=== PATIENT | male | born 1990 | race Caucasian/White ===

== ENCOUNTER 2018-04-08 22:40 | Emergency (ER) | payer SELFPAY ==
[~2018-04-08] VITALS: Ht 182.9 cm; Wt 72.6 kg
[~2018-04-08 22:40] MED LIST: CEPH500 PO; CLOT1TC TOP; CODACE30 PO; CRUTCH2 USE; HYDACE5325 PO; SULTRIDS PO; TRAM50 PO
== END 2018-04-08 23:46 | disposition left against medical advice (07) ==
LOC: ER 22:40
DX: Z53.21 Procedure and treatment not carried out due to patient leaving prior to being seen by health care provider (principal)

== ENCOUNTER 2020-01-28 17:04 | Observation (INO) | payer OTHER ==
[~2020-01-28] VITALS: Ht 177.8 cm; Wt 72.6 kg
--- NOTE | 2020-01-28 20:41 | NUR ---
ASSESSMENT PT ARRIVED TO ICU FOR RECOVERY VIA GURNEY. PT IS ALERT AND ORIENTED. HE HAS NO COMPLAINTS OF PAIN AT THIS TIME. REPORT RECIEVED FROM OFF GOING REJI ROBERT AND DR LEWIS. PT WILL RECOVERY AND THEN BE DISCHARGED HOME THIS EVENING. PT CALLED TO HAVE HER COME PICK IN UP. DR DASH WAS CALLED AND HE WILL PUT IN DISCHARGE ORDERS. VITALS ARE STABLE. PT WAS ABLE TO DRINK WATER WITH NO ISSUES. WILL CON'T TO MONITOR PT T/O SHIFT.
[2020-01-28] MEDS ORDERED: HYDR1TAB94 PO (21:03)
[2020-01-28] MEDS ORDERED: CEPH500 PO (21:04)
--- NOTE | 2020-01-28 21:30 | NUR ---
DISCHARGED PT WAS DISCHARED HOME WITH . IV TO RIGHT WRIST D/C'D CATH TIP INTACT. PT WAS ABLE TO DRINK TWO CUPS OF WATER. HE DID NOT HAVE TO URINATE. DRESSING TO LEFT HAND CDI.DISCHARGE INSTRUCTIONS REVIEWED WITH PT BY THIS RN. PT WAS GIVEN HIS KEFFLEX AND NORCO PRESCRIPTIONS WRITTEN BY DR DASH. DOLL WIG MAKER TOOK PT OUT TO VIA W/C. PT STABLE UPON LEAVING ICU RECOVERY.
== END 2020-01-28 21:15 | disposition home or self-care (01) ==
LOC: ER 17:04 → ICUW 17:05 → ICUE 20:20
PROVIDERS: ADMIT Orthopaedic Surgery
PROC: 0X6R0Z3 Detachment at Left Middle Finger, Low, Open Approach (ICD-10-PCS; principal; 2020-01-28 18:00)
DX: S68.123A Partial traumatic metacarpophalangeal amputation of left middle finger, initial encounter (principal); Z23 Encounter for immunization; F17.210 Nicotine dependence, cigarettes, uncomplicated; W23.0XXA Caught, crushed, jammed, or pinched between moving objects, initial encounter
CPT/HCPCS: 36415; 64450; 73140; 88300; 90471; 90714; 96365; 96375-59; 99285-25; A9270-GY; J0690; J1170; J2250; J2405; J2704; J3010; J7120

== ENCOUNTER 2023-03-28 17:49 | Emergency (ER) | payer OTHER ==
[~2023-03-28] VITALS: Ht 180.3 cm; Wt 86.2 kg
[~2023-03-28 17:49] MED LIST changes: +HYDR1TAB94 PO
[2023-03-28 18:59] LABS: BASOPHILS ABSOLUTE AUTO 0.05 K/mm3 (0.00-0.23); BASOPHILS PERCENT AUTO 0 % (0-2); EOSINOPHILS ABSOLUTE AUTO 0.29 K/mm3 (0.00-0.68); EOSINOPHILS PERCENT AUTO 3 % (0-6); Hematocrit 42.1 % (37.0-53.0); Hemoglobin 14.2 g/dL (13.5-17.5); IMMATURE GRAN ABSOLUTE AUTO 0.04 K/mm3 (0.00-0.10); IMMATURE GRAN PERCENT AUTO 0 % (0-1); LYMPHOCYTES ABSOLUTE AUTO 3.03 K/mm3 (0.84-5.20); LYMPHOCYTES PERCENT AUTO 27 % (21-46); MONOCYTES ABSOLUTE AUTO 0.77 K/mm3 (0.16-1.47); MONOCYTES PERCENT AUTO 7 % (4-13); Mean Corpuscular HGB Conc 33.7 g/dL (31.5-36.5); Mean Corpuscular Volume 92 fL (80-100); Mean Platelet Volume 9.3 fL (9.1-12.4); NEUTROPHILS ABSOLUTE AUTO 7.19 K/mm3 (1.96-9.15); NEUTROPHILS PERCENT AUTO 63 % (41-73); Platelet Count 266 K/mm3 (150-400); RDW Coefficient Variation 12.2 % (11.7-14.2); RDW Standard Deviation 41.6 fL (35.1-46.3); Red Blood Cell Count 4.58 M/mm3 (4.30-5.90); White Blood Cell Count 11.37 K/mm3 (4.00-11.30)
[2023-03-28 19:05] LABS: Bun/Creatinine Ratio 14.4 (12.0-20.0); Calcium, Blood 8.9 mg/dL (8.5-10.1); Creatinine, Blood 0.91 mg/dL (0.60-1.20); Potassium, Blood 3.8 mmol/L (3.5-5.5)
[2023-03-28] MEDS ORDERED: HYDR1TAB94 PO (20:00)
[2023-03-28] MEDS ORDERED: Cleocin HCl300 MG PO (20:00)
[2023-03-28 20:44] VITALS: BP 138/90
== END 2023-03-28 20:46 | disposition home or self-care (01) ==
LOC: ER 17:49
PROVIDERS: Physician Assistant
DX: K04.01 Reversible pulpitis (principal); S02.5XXA Fracture of tooth (traumatic), initial encounter for closed fracture; L03.211 Cellulitis of face; F17.210 Nicotine dependence, cigarettes, uncomplicated; X58.XXXA Exposure to other specified factors, initial encounter
CPT/HCPCS: 80048; 85025; 96365; 99283-25; A9270; J0696